=== PATIENT | female | born 1925 | race Caucasian/White ===

== ENCOUNTER → 2016-11-13 | Outpatient (REF) | payer MEDICARE, MEDICAID ==
[~2016-11-13] MED LIST: *ANUSOI; /BUSP5TA; /FENT25PA; /FENT25PA TD; /FENT50PA; /METO5TA PO; /MOXI40TA OR; /NITR4TASL SL; /SUCR1TA; ACET65TA; ACET65TA PO; ANBE10LI TOP; ANUS2.5C2 PR; ANUSHCSU PR; ARTIDRO OU; ARTIOIN OU; ARTISOL10; ARTISOL10 OU; ASPI325T; ASPI325T PO; ASPI81TA3 OR; ASPI81TA83; ATEN100T; ATEN100T OR; BABY81CH; BENGAY TOP; BISA10SU2 PR; BUSP10TA2; CARA1SUS; CARA1SUS PO; CLEO150C PO; CLEO300C; COLA100C2; COLA100C2 PO; COUMADIN PO; DIGO0.126 OR; DRISDOL; ECOT325T5; FERR325T OR; FLEEENE4; FLEEENE4 PR; FLEETS ENEMA; FLUC10TA; FURO40TA2; GABA600T3 OR; GAS-80CH PO; KLOR10TA5 PO; LASI40TA PO; LIDO5DIS; LIDO5DIS TOP; LIPI10TA PO; LISI2.5T PO; LOPR50TA PO; MAVI4TAB; MILKSUS; MILKSUS PO; MIRALEX; MIRALEX PO; MOM CONCENTRATE PO; MULTIVIT PO; MYLATAB PO; MYLI40DR; NORV5TAB; PERC5TAB PO; PERC5TAB8; PERC5TAB8 PO; PERC7.5T8; PERC7.5T8 OR; PHEN100T2; PREDNISOLONE ACETATE OU; PREPOI TOP; PREV30TA; PRIL40CA; PRIL40CA OR; PRILOSEC PO; RESTASIS; RESTASIS OPTHL; SIME40TA PO; SYSTANE EYE; SYSTANE EYE DROPS; TENO100T; TYLE325T5 PO; TYLENOL SUPPOSITORY PR; VICO5TAB; VITA-113; VITA100T; VITA100T OR; VITA20002; VITA50TA12; VITACAP31 PO; VITAMIN B-12; VITAMIN D; VITAMIN D50000 UNT; VITAMIN D50000 UNT OR; XANA0.25; XANA0.25 OR; XANA0.25 PO; XANA0.5T PO; ZOLO50TA; [UNRECOGNIZED DRUG - CODE]; [UNRECOGNIZED DRUG - OTHER]; [UNRECOGNIZED DRUG - OTHER] PO; macrobid; restasis OU
[2016-11-13 09:46] LABS: INR 1.97
== END ==
LOC: SKLAB7 07:00
PROVIDERS: ATTEND Family Medicine
DX: I48.91 Unspecified atrial fibrillation (principal)

== ENCOUNTER → 2016-11-17 | Outpatient (REF) | payer MEDICARE, MEDICAID ==
[2016-11-17 15:31] LABS: BASO % 0.3 % (0.0-1.0); EOS # 0.1 K/mm3 (0.0-0.50); EOS % 0.7 % (0.0-3.0); LARGE UNSTAINED CELL # 0.2 K/mm3 (0.0-0.4); LARGE UNSTAINED CELL % 1.3 % (0.0-4.0); LYMPH # 0.6 K/mm3 (1.5-4.5); LYMPH % 4.3 % (24.0-44.0); MEAN CORPUSCULAR HEMOGLOBIN 28.8 pg (27.0-33.0); MEAN CORPUSCULAR HGB CONC 31.7 g/dl (32.0-36.5); MEAN CORPUSCULAR VOLUME 91.1 fl (80.0-96.0); MONO # 0.6 K/mm3 (0.0-0.8); MONO % 4.6 % (0.0-5.0); NEUTROPHILS # 11.3 K/mm3 (1.8-7.7); NEUTROPHILS % 88.7 % (36.0-66.0); PLATELET COUNT, AUTOMATED 114 k/mm3 (150-450); RED CELL DISTRIBUTION WIDTH 14.3 % (11.5-14.5); WHITE BLOOD COUNT 12.8 K/mm3 (4.0-10.0)
--- NOTE | 2016-11-17 16:32 | REP ---
Portable chest x-ray: Single view: History: Abnormal breath sounds. Elevated temperature. Comparison chest x-ray is from 03/02/2015. Findings: Right hemidiaphragm remains somewhat elevated. Moderate cardiomegaly is observed. Patient is rotated somewhat to the right for the current exposure. There is fissural thickening in the minor fissure. No eliel pleural effusion is seen. Pulmonary vasculature appears somewhat cephalized. The patient is status-post vertebroplasty in one mid and one lower thoracic vertebrae. There is some diffuse osteopenia. Impression: Moderate cardiomegaly and pulmonary vascular congestion. Fissural thickening noted in the minor fissure. No focal infiltrate seen. Signed by Sy Allison MD 11/17/2016 04:35 P
== END ==
LOC: SKLAB7 14:31
PROVIDERS: ATTEND Family Medicine
DX: R50.9 Fever, unspecified (principal); I51.7 Cardiomegaly

== ENCOUNTER → 2016-11-20 | Outpatient (REF) | payer MEDICARE, MEDICAID ==
[2016-11-20 09:15] LABS: INR 1.9
== END ==
LOC: SKLAB7 07:00
PROVIDERS: ATTEND Family Medicine
DX: I48.91 Unspecified atrial fibrillation (principal)

== ENCOUNTER → 2016-11-27 | Outpatient (REF) | payer MEDICARE, MEDICAID ==
[2016-11-27 08:32] LABS: INR 1.6
[2016-11-27 08:40] LABS: MEAN CORPUSCULAR VOLUME 90.3 fl (80.0-96.0); RED CELL DISTRIBUTION WIDTH 15.1 % (11.5-14.5); WHITE BLOOD COUNT 6.9 K/mm3 (4.0-10.0)
== END ==
LOC: SKLAB7 07:00
PROVIDERS: ATTEND Family Medicine
DX: I48.91 Unspecified atrial fibrillation (principal); D64.9 Anemia, unspecified

== ENCOUNTER → 2016-12-04 | Outpatient (REF) | payer MEDICARE, MEDICAID ==
[2016-12-04 08:50] LABS: INR 2.73
== END ==
LOC: SKLAB7 07:00
PROVIDERS: ATTEND Family Medicine
DX: I48.91 Unspecified atrial fibrillation (principal)

== ENCOUNTER → 2016-12-11 | Outpatient (REF) | payer MEDICARE, MEDICAID ==
[2016-12-11 08:43] LABS: INR 2.72
== END ==
LOC: SKLAB7 09:25
PROVIDERS: ATTEND Family Medicine
DX: I48.91 Unspecified atrial fibrillation (principal)

== ENCOUNTER → 2016-12-18 | Outpatient (REF) | payer MEDICARE, MEDICAID ==
[2016-12-18 08:44] LABS: INR 2.55
== END ==
LOC: SKLAB7 06:46
PROVIDERS: ATTEND Family Medicine
DX: I48.91 Unspecified atrial fibrillation (principal); Z51.81 Encounter for therapeutic drug level monitoring; Z79.01 Long term (current) use of anticoagulants

== ENCOUNTER → 2016-12-25 | Outpatient (REF) | payer MEDICARE, MEDICAID ==
[2016-12-25 09:12] LABS: MEAN CORPUSCULAR HEMOGLOBIN 27.8 pg (27.0-33.0); MEAN CORPUSCULAR HGB CONC 30.7 g/dl (32.0-36.5); MEAN CORPUSCULAR VOLUME 90.4 fl (80.0-96.0); RED CELL DISTRIBUTION WIDTH 14.5 % (11.5-14.5); WHITE BLOOD COUNT 6.7 K/mm3 (4.0-10.0)
[2016-12-25 09:22] LABS: INR 2.43
== END ==
LOC: SKLAB7 07:00
PROVIDERS: ATTEND Family Medicine
DX: I48.91 Unspecified atrial fibrillation (principal); D64.9 Anemia, unspecified

== ENCOUNTER → 2017-01-01 | Outpatient (REF) | payer MEDICARE, MEDICAID ==
[2017-01-01 08:26] LABS: INR 2.36
== END ==
LOC: SKLAB7 14:11
PROVIDERS: ATTEND Family Medicine
DX: I48.91 Unspecified atrial fibrillation (principal)

== ENCOUNTER → 2017-01-08 | Outpatient (REF) | payer MEDICARE, MEDICAID ==
[2017-01-08 09:28] LABS: INR 3.27
== END ==
LOC: SKLAB7 09:52
PROVIDERS: ATTEND Family Medicine
DX: I48.91 Unspecified atrial fibrillation (principal)

== ENCOUNTER → 2017-01-15 | Outpatient (REF) | payer MEDICARE, MEDICAID ==
[2017-01-15 08:22] LABS: INR 3.33
== END ==
LOC: SKLAB7 08:00
PROVIDERS: ATTEND Family Medicine
DX: I48.91 Unspecified atrial fibrillation (principal)

== ENCOUNTER → 2017-01-16 | Outpatient (REF) | payer MEDICARE, MEDICAID ==
[2017-01-16 07:28] LABS: INR 2.81
== END ==
LOC: SKLAB7 08:00
PROVIDERS: ATTEND Family Medicine
DX: I48.91 Unspecified atrial fibrillation (principal)

== ENCOUNTER → 2017-01-22 | Outpatient (REF) | payer MEDICARE, MEDICAID ==
[2017-01-22 08:54] LABS: MEAN CORPUSCULAR HEMOGLOBIN 27.8 pg (27.0-33.0); MEAN CORPUSCULAR HGB CONC 30.8 g/dl (32.0-36.5); MEAN CORPUSCULAR VOLUME 90.3 fl (80.0-96.0); RED CELL DISTRIBUTION WIDTH 14.8 % (11.5-14.5); WHITE BLOOD COUNT 9.8 K/mm3 (4.0-10.0)
[2017-01-22 09:05] LABS: INR 2.04
== END ==
LOC: SKLAB7 07:00
PROVIDERS: ATTEND Family Medicine
DX: I48.91 Unspecified atrial fibrillation (principal); D64.9 Anemia, unspecified

== ENCOUNTER → 2017-01-29 | Outpatient (REF) | payer MEDICARE, MEDICAID ==
[2017-01-29 09:45] LABS: INR 2.19
== END ==
LOC: SKLAB7 10:07
PROVIDERS: ATTEND Family Medicine
DX: I48.91 Unspecified atrial fibrillation (principal)

== ENCOUNTER → 2017-02-03 | Outpatient (REF) | payer MEDICARE, MEDICAID ==
--- NOTE | 2017-02-03 14:58 | REP ---
Clinical: Trauma. Fall. Pain. Technique: Internal rotation, external rotation, and Y view. Comparison: 05/15/2006. Findings: Age-related osteopenia and moderate osteoarthritic degenerative changes include cortical irregularities and inferior spurring at the acromioclavicular joint as well as cortical irregularity and subtle mottled appearance to the humeral head and glenoid. No obvious acute fracture or dislocation. Impression: Osteopenia and moderate osteoarthritic degenerative changes. No acute fracture or dislocation identified. Signed by Adonis Yuen MD 02/03/2017 02:50 P
--- NOTE | 2017-02-03 15:00 | REP ---
Clinical: Fall. Pain. Technique: Cephalic angled, caudal angled, and lateral views of the sacrum and coccyx. Findings: Examination is limited by osteopenia and degenerative changes. No obvious acute fracture or subluxation is appreciated. The curvature of the sacrum and coccyx on lateral view appears intact. Impression: Osteopenia and degenerative changes. No obvious acute sacral or coccyx fracture. Signed by Adonis Yuen MD 02/03/2017 02:51 P
--- NOTE | 2017-02-03 15:01 | REP ---
Clinical: Fall. Pain. Technique: AP view of the pelvis. Findings: Evaluation is limited by osteopenia and degenerative changes. No obvious acute pelvic fracture identified. Impression: No obvious acute pelvic fracture noted. If the patient remains symptomatic consider CT of the pelvis and/or hip for further investigation. Signed by Adonis Yuen MD 02/03/2017 02:52 P
== END ==
LOC: SKLAB3 13:35
PROVIDERS: ATTEND Family Medicine
DX: M25.511 Pain in right shoulder (principal); M19.011 Primary osteoarthritis, right shoulder; M89.9 Disorder of bone, unspecified; W19.XXXA Unspecified fall, initial encounter; X58.XXXA Exposure to other specified factors, initial encounter; Y93.9 Activity, unspecified; Y92.9 Unspecified place or not applicable; Y99.8 Other external cause status

== ENCOUNTER → 2017-02-05 | Outpatient (REF) | payer MEDICARE, MEDICAID ==
[2017-02-05 09:22] LABS: INR 2.28
== END ==
LOC: SKLAB7 09:42
PROVIDERS: ATTEND Family Medicine
DX: I48.91 Unspecified atrial fibrillation (principal)

== ENCOUNTER → 2017-02-12 | Outpatient (REF) | payer MEDICARE, MEDICAID | LOC: SKLAB7 07:00 | PROVIDERS: ATTEND Family Medicine | DX: I48.91 Unspecified atrial fibrillation (principal) ==

== ENCOUNTER → 2017-02-26 | Outpatient (REF) | payer MEDICARE, MEDICAID ==
[2017-02-26 08:27] LABS: MEAN CORPUSCULAR HEMOGLOBIN 28.5 pg (27.0-33.0); RED CELL DISTRIBUTION WIDTH 15.3 % (11.5-14.5); WHITE BLOOD COUNT 5.6 K/mm3 (4.0-10.0)
[2017-02-26 08:27] LABS: INR 1.88
[2017-02-26 09:21] LABS: ALBUMIN 3.1 GM/DL (3.2-5.2); ALBUMIN/GLOBULIN RATIO 0.94 (1.00-1.93); BILIRUBIN,TOTAL 0.4 MG/DL (0.2-1.0); CALCIUM LEVEL 8.2 MG/DL (8.8-10.2); CREATININE FOR GFR 1.16 MG/DL (0.55-1.02); DIGOXIN LEVEL 0.6 NG/ML (0.5-2.0); GLOMERULAR FILTRATION RATE 46.8 (>32); TOTAL PROTEIN 6.4 GM/DL (6.4-8.2)
== END ==
LOC: SKLAB7 07:00
PROVIDERS: ATTEND Family Medicine
DX: I48.91 Unspecified atrial fibrillation (principal); I50.9 Heart failure, unspecified

== ENCOUNTER → 2017-03-05 | Outpatient (REF) | payer MEDICARE, MEDICAID ==
[2017-03-05 08:38] LABS: INR 2.55
== END ==
LOC: SKLAB7 07:00
PROVIDERS: ATTEND Family Medicine
DX: I48.91 Unspecified atrial fibrillation (principal)

== ENCOUNTER → 2017-03-12 | Outpatient (REF) | payer MEDICARE, MEDICAID | LOC: SKLAB7 08:15 | PROVIDERS: ATTEND Family Medicine | DX: I48.91 Unspecified atrial fibrillation (principal) ==

== ENCOUNTER → 2017-03-19 | Outpatient (REF) | payer MEDICARE, MEDICAID ==
[2017-03-19 09:21] LABS: INR 3.04
== END ==
LOC: SKLAB7 08:00
PROVIDERS: ATTEND Family Medicine
DX: I48.91 Unspecified atrial fibrillation (principal)

== ENCOUNTER → 2017-03-26 | Outpatient (REF) | payer MEDICARE, MEDICAID ==
[2017-03-26 09:00] LABS: INR 2.6
[2017-03-26 09:02] LABS: MEAN CORPUSCULAR HEMOGLOBIN 29.1 pg (27.0-33.0); MEAN CORPUSCULAR HGB CONC 31.9 g/dl (32.0-36.5); MEAN CORPUSCULAR VOLUME 91.1 fl (80.0-96.0); RED CELL DISTRIBUTION WIDTH 14.8 % (11.5-14.5); WHITE BLOOD COUNT 5.8 K/mm3 (4.0-10.0)
== END ==
LOC: SKLAB7 10:19
PROVIDERS: ATTEND Family Medicine
DX: I48.91 Unspecified atrial fibrillation (principal)

== ENCOUNTER → 2017-04-02 | Outpatient (REF) | payer MEDICARE, MEDICAID ==
[2017-04-02 09:41] LABS: INR 3.08
== END ==
LOC: SKLAB7 07:00
PROVIDERS: ATTEND Family Medicine
DX: I48.91 Unspecified atrial fibrillation (principal)

== ENCOUNTER → 2017-04-05 | Outpatient (REF) | payer MEDICARE, MEDICAID ==
--- NOTE | 2017-04-05 16:43 | REP ---
Clinical: Fever. Congestion. Comparison: 11/17/2016. Findings: Mediastinum and cardiac silhouette are stable. Lung guevara demonstrate diffuse chronic interstitial changes. No obvious acute consolidation, effusion, or pneumothorax. Skeletal structures intact. Impression: Chronic stable changes. No obvious acute cardiopulmonary process. Signed by Adonis Yuen MD 04/05/2017 04:34 P
[2017-04-05 17:09] LABS: MEAN CORPUSCULAR HGB CONC 31.5 g/dl (32.0-36.5); RED CELL DISTRIBUTION WIDTH 14.6 % (11.5-14.5); WHITE BLOOD COUNT 11.9 K/mm3 (4.0-10.0)
== END ==
LOC: SKLAB7 15:33
PROVIDERS: ATTEND Family Medicine
DX: R50.9 Fever, unspecified (principal); R09.89 Other specified symptoms and signs involving the circulatory and respiratory systems

== ENCOUNTER → 2017-04-07 | Outpatient (REF) | payer MEDICARE, MEDICAID | LOC: SKLAB7 07:00 | PROVIDERS: ATTEND Family Medicine | DX: R50.9 Fever, unspecified (principal) ==

== ENCOUNTER → 2017-04-09 | Outpatient (REF) | payer MEDICARE, MEDICAID ==
[2017-04-09 08:45] LABS: INR 1.98
== END ==
LOC: SKLAB7 07:00
PROVIDERS: ATTEND Family Medicine
DX: I48.91 Unspecified atrial fibrillation (principal)

== ENCOUNTER → 2017-04-16 | Outpatient (REF) | payer MEDICARE, MEDICAID ==
[2017-04-16 09:59] LABS: INR 1.52
== END ==
LOC: SKLAB7 07:00
PROVIDERS: ATTEND Family Medicine
DX: I48.91 Unspecified atrial fibrillation (principal)

== ENCOUNTER → 2017-04-23 | Outpatient (REF) | payer MEDICARE, MEDICAID ==
[2017-04-23 09:20] LABS: MEAN CORPUSCULAR HEMOGLOBIN 28.4 pg (27.0-33.0); MEAN CORPUSCULAR HGB CONC 31.2 g/dl (32.0-36.5); MEAN CORPUSCULAR VOLUME 91.2 fl (80.0-96.0); RED CELL DISTRIBUTION WIDTH 14.6 % (11.5-14.5); WHITE BLOOD COUNT 6.5 K/mm3 (4.0-10.0)
[2017-04-23 09:23] LABS: INR 1.94
== END ==
LOC: SKLAB7 08:00
PROVIDERS: ATTEND Family Medicine
DX: I48.91 Unspecified atrial fibrillation (principal); D64.9 Anemia, unspecified

== ENCOUNTER → 2017-04-30 | Outpatient (REF) | payer MEDICARE, MEDICAID ==
[2017-04-30 09:14] LABS: INR 3.25
== END ==
LOC: SKLAB7 08:00
PROVIDERS: ATTEND Family Medicine
DX: I48.91 Unspecified atrial fibrillation (principal)

== ENCOUNTER → 2017-05-07 | Outpatient (REF) | payer MEDICARE, MEDICAID ==
[2017-05-07 08:27] LABS: INR 4.11
== END ==
LOC: SKLAB7 07:00
PROVIDERS: ATTEND Family Medicine
DX: I48.91 Unspecified atrial fibrillation (principal)

== ENCOUNTER → 2017-05-14 | Outpatient (REF) | payer MEDICARE, MEDICAID ==
[2017-05-14 09:20] LABS: INR 1.68
== END ==
LOC: SKLAB7 11:53
PROVIDERS: ATTEND Family Medicine
DX: I48.91 Unspecified atrial fibrillation (principal)

== ENCOUNTER → 2017-05-21 | Outpatient (REF) | payer MEDICARE, MEDICAID ==
[2017-05-21 10:35] LABS: INR 2.24
== END ==
LOC: SKLAB7 14:36
PROVIDERS: ATTEND Family Medicine
DX: I48.91 Unspecified atrial fibrillation (principal)

== ENCOUNTER → 2017-05-28 | Outpatient (REF) | payer MEDICARE, MEDICAID ==
[2017-05-28 08:20] LABS: MEAN CORPUSCULAR HEMOGLOBIN 29.3 pg (27.0-33.0); MEAN CORPUSCULAR HGB CONC 32.4 g/dl (32.0-36.5); MEAN CORPUSCULAR VOLUME 90.4 fl (80.0-96.0); RED CELL DISTRIBUTION WIDTH 14.9 % (11.5-14.5); WHITE BLOOD COUNT 6.3 K/mm3 (4.0-10.0)
[2017-05-28 08:21] LABS: INR 2.28
== END ==
LOC: SKLAB7 07:00
PROVIDERS: ATTEND Family Medicine
DX: I48.91 Unspecified atrial fibrillation (principal); D64.9 Anemia, unspecified

== ENCOUNTER → 2017-06-04 | Outpatient (REF) | payer MEDICARE, MEDICAID ==
[2017-06-04 08:43] LABS: INR 2.02
== END ==
LOC: SKLAB7 07:00
PROVIDERS: ATTEND Family Medicine
DX: I48.91 Unspecified atrial fibrillation (principal)

== ENCOUNTER → 2017-06-11 | Outpatient (REF) | payer MEDICARE, MEDICAID ==
[2017-06-11 08:43] LABS: INR 2.11
== END ==
LOC: SKLAB7 14:16
PROVIDERS: ATTEND Family Medicine
DX: I48.91 Unspecified atrial fibrillation (principal)

== ENCOUNTER 2017-06-13 04:21 | Emergency (ER) | payer MEDICARE, MEDICAID ==
[~2017-06-13] VITALS: Ht 152.4 cm; Wt 55.0 kg
[2017-06-13 04:34] VITALS: BP 163/89
[2017-06-13] MEDS ORDERED: MORPHINE 10 MG/ML 1ML VIAL IM ONE (05:00)
--- NOTE | 2017-06-13 05:00 | REPUSA ---
CLINICAL HISTORY: Trauma. TECHNIQUE: Multiple axial CT images were obtained through the brain without IV contrast material. COMMENTS: There is normal configuration of sella turcica. There are no intra or extra-axial collections. There is no mass effect or midline shift. There is no evidence of hematoma formation. No hydrocephalus is p resent. The ventricles are symmetrical. No abnormal calcifications are present. There is diffuse age-appropriate cerebellar and cerebral atrophy with proportionally dilated ventricl es and cortical sulci. There are bilateral periventricular and subcortical white matter hypolucencies compatible with mild c hronic microvascular disease. Otherwise, no significant focal abnormalities are seen either in the posterior fossa or supratentoria l compartment. Left parietal subgaleal soft tissue hematoma. IMPRESSION: 1. Age-appropriate cerebellar and cerebral atrophy. 2. Mild chronic microvascular disease. 3. No evidence of acute intracranial pathology. Thank you for your kind referral of this patient.
--- NOTE | 2017-06-13 05:10 | REPUSA ---
CLINICAL HISTORY: Neck pain. TECHNIQUE: Multiple axial images were obtained through the cervical spine. Images were also reconstru cted in coronal and sagittal planes. The study was performed without IV contrast. COMMENTS: There is no fracture or spondylolisthesis visualized. The paraspinal soft tissues are unremarkable. T here are no lytic or blastic lesions. Straightening of cervical lordosis is seen, suggesting muscular spasm. There is evidence of minimal m ultilevel disk disease, demonstrated by minimal osteophytosis and endplate sclerosis. No significant disk herniation is noted at any level. Canal and foramina remain patent. IMPRESSION: 1. No fracture or spondylolisthesis. 2. Straightening of cervical lordosis is seen, suggesting muscular spasm. 3. Minimal multilevel spondylosis. Thank you for your kind referral of this patient.
[2017-06-13 05:34] LABS: INR 1.96
== END 2017-06-13 05:58 | disposition home or self-care (01) ==
LOC: M ED 04:21
DX: S01.01XA Laceration without foreign body of scalp, initial encounter (principal); W18.30XA Fall on same level, unspecified, initial encounter; Y92.129 Unspecified place in nursing home as the place of occurrence of the external cause; Y99.9 Unspecified external cause status; Y93.9 Activity, unspecified; Z88.0 Allergy status to penicillin; Z88.8 Allergy status to other drugs, medicaments and biological substances; Z79.82 Long term (current) use of aspirin; Z79.899 Other long term (current) drug therapy

== ENCOUNTER → 2017-06-18 | Outpatient (REF) | payer MEDICARE, MEDICAID ==
[2017-06-18 09:13] LABS: INR 1.94
== END ==
LOC: SKLAB7 07:00
PROVIDERS: ATTEND Family Medicine
DX: I48.91 Unspecified atrial fibrillation (principal)

== ENCOUNTER → 2017-06-25 | Outpatient (REF) | payer MEDICARE, MEDICAID ==
[2017-06-25 09:26] LABS: INR 1.87
[2017-06-25 09:37] LABS: MEAN CORPUSCULAR HGB CONC 32.7 g/dl (32.0-36.5); MEAN CORPUSCULAR VOLUME 91.8 fl (80.0-96.0); WHITE BLOOD COUNT 5.2 K/mm3 (4.0-10.0)
== END ==
LOC: SKLAB7 08:18
PROVIDERS: ATTEND Family Medicine
DX: I48.91 Unspecified atrial fibrillation (principal); D64.9 Anemia, unspecified

== ENCOUNTER → 2017-07-02 | Outpatient (REF) | payer MEDICARE, MEDICAID ==
[2017-07-02 08:45] LABS: INR 1.61
== END ==
LOC: SKLAB7 07:00
PROVIDERS: ATTEND Family Medicine
DX: I48.91 Unspecified atrial fibrillation (principal)

== ENCOUNTER → 2017-07-09 | Outpatient (REF) | payer MEDICARE, MEDICAID ==
[2017-07-09 08:32] LABS: INR 2.48
== END ==
LOC: SKLAB7 14:35
PROVIDERS: ATTEND Family Medicine
DX: I48.91 Unspecified atrial fibrillation (principal)